=== PATIENT | male | born 1965 | race Caucasian/White ===

== ENCOUNTER 2018-02-09 08:36 | Outpatient (CLI) | payer OTHER ==
--- NOTE | 2018-02-09 18:16 | Diagnostic Imaging Report ---
JERRY BOYLE [facility] [id number] [facility] [address] [address] Report Submission Date: Feb 09, 2018 8:58:44 AM CDT Patient Study Name: AARTI HALL Date: Feb 09, 2018 8:47:33 AM CDT MRN: [id number] Modality Type: DX Gender: M Description: UPPER EXTREMITY : 61 Institution: [facility] Physician: JERRY BOYLE Left elbow, 3 views. History: LEFT ELBOW, S/P DISTAL BICEP REPAIR ON 12/20/17 Findings: The osseous structures are intact without acute fracture. The radial head is in normal position and alignment. There is no joint effusion. The surgical change present proximal radius with tendon anchor present. There is no soft tissue swelling. Impression: 1. No acute osseous abnormality. 2. Postoperative changes present in the proximal radius. Electronically signed on Feb 09, 2018 8:58:44 AM CDT by: Saleem KRUEGER
== END 2018-02-09 09:22 ==
LOC: RAD 08:36
PROVIDERS: ATTEND Orthopaedic Surgery
DX: Z48.89 Encounter for other specified surgical aftercare (principal); Z47.89 Encounter for other orthopedic aftercare
CPT/HCPCS: 73080